=== PATIENT | female | born 1970 | race Caucasian/White ===

== ENCOUNTER 2018-12-12 15:08 | Emergency (ER) | payer MEDICARE, MEDICAID ==
[2018-12-12 15:23] VITALS: BP 146/95
[2018-12-12] MEDS ORDERED: Sodium Chloride 0.9% 10 ML Syringe FLUSH PRN (15:27)
[2018-12-12] MEDS ORDERED: cloNIDine 0.1 MG Tab PO ONE (15:27)
[2018-12-12] MEDS ORDERED: hydrOXYzine HCl 25 MG Tab PO ONE (15:28)
--- NOTE | 2018-12-12 15:34 | EDM.PDOC ---
ED HPI GENERAL MEDICAL PROBLEM - General Chief Complaint: Chest Pain Stated Complaint: CHEST PAINS Time Seen by Provider: 12/12/18 15:09 Source of Information: Reports: Patient History Limitations: Reports: No Limitations - History of Present Illness INITIAL COMMENTS - FREE TEXT/NARRATIVE: Patient comes into the emergency department with complaint of chest discomfort. She states of the chest discomfort started approximately 5 days ago. The chest pain has been consistent through the last 5 days and has not come and gone. She states has not gotten worse but has stayed the same but does admit it radiates to her shoulder blade. She can not think of anything that makes he pain better or worse. She denies any nausea/vomiting, SOB, or lower extremity swelling. Patient does admit to having a history of anxiety and has had a lot of stress in the recent weeks. She denies any recent injuries or illnesses. She is not on control, no recent long over the road or flights. Is actively quitting smoking Onset: Gradual Location: Reports: Chest Quality: Reports: Burning, Sharp, Throbbing Severity: Moderate Improves with: Reports: None Worsens with: Reports: None Context: Reports: Other Associated Symptoms: Reports: No Other Symptoms Mid-Sternal Chest Pain Score (Numeric/FACES): 4 - Related Data Allergies Allergy/AdvReac Type Severity Reaction Status Date / Time divalproex sodium Allergy Nausea and Verified 12/12/18 15:17 [From Depakote] Vomiting duloxetine HCl Allergy Rash Verified 12/12/18 15:17 [From Cymbalta] fluticasone propionate Allergy Headache Verified 12/12/18 15:17 [From Advair Diskus] salmeterol xinafoate Allergy Headache Verified 12/12/18 15:17 [From Advair Diskus] spironolactone Allergy Difficulty Verified 12/12/18 15:17 Breathing venlafaxine HCl Allergy Tremors Verified 12/12/18 15:17 [From Effexor] Home Meds: Home Meds levoFLOXacin [Levaquin] 750 mg PO Q48H #10 tab 07/19/15 [Rx] Past Medical History - Past Health History Medical/Surgical History: Denies Medical/Surgical History Gastrointestinal History: Reports: Other (See Below) Other Gastrointestinal History: history of colitis 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: Reports: Psychiatric History: Reports: Depression Social & Family History - Tobacco Use Smoking Status *Q: Current Every Day Smoker Years of Tobacco use: 10 Packs/Tins Daily: 0.1 - Recreational Drug Use Recreational Drug Use: No ED ROS GENERAL - Review of Systems Review Of Systems: See Below Constitutional: Reports: No Symptoms HEENT: Reports: No Symptoms Cardiovascular: Reports: Chest Pain, Palpitations GI/Abdominal: Reports: No Symptoms : Reports: No Symptoms Skin: Reports: No Symptoms Neurological: Reports: No Symptoms Psychiatric: Reports: No Symptoms Hematologic/Lymphatic: Reports: No Symptoms ED EXAM, GENERAL - Physical Exam Exam: See Below Exam Limited By: No Limitations General Appearance: Alert, WD/WN, No Apparent Distress Respiratory/Chest: No Respiratory Distress, Lungs Clear, Normal Breath Sounds, No Accessory Muscle Use, Chest Non-Tender Cardiovascular: Normal Peripheral Pulses, Regular Rate, Rhythm, No Edema GI/Abdominal: Normal Bowel Sounds, Soft, Non-Tender, No Distention, No Abnormal Bruit Back Exam: Normal Inspection, Full Range of Motion Extremities: Normal Inspection, Normal Range of Motion, Non-Tender, No Pedal Edema, Normal Capillary Refill Neurological: Alert, Oriented Psychiatric: Anxious Skin Exam: Warm, Dry, Intact, Normal Color Course - Vital Signs Last Recorded V/S: Last Vital Signs Temp 36.4 C 12/12/18 15:15 Pulse 58 L 12/12/18 15:15 Resp 18 12/12/18 15:15 BP 146/95 H 12/12/18 15:34 Pulse Ox 95 12/12/18 15:15 - Orders/Labs/Meds Orders: Active Orders 24 hr Category Date Time Status EKG Documentation Completion [RC] STAT Care 12/12/18 15:27 Active Chest 1V Frontal [CR] Stat Exams 12/12/18 15:28 Ordered Sodium Chloride 0.9% [Saline Flush] Med 12/12/18 15:27 Active 10 ml FLUSH ASDIRECTED PRN Peripheral IV Insertion Adult [OM.PC] Stat Oth 12/12/18 15:27 Ordered Medication Orders Sodium Chloride (Saline Flush) 10 ml FLUSH ASDIRECTED PRN PRN Reason: Keep Vein Open Labs: Laboratory Tests 12/12/18 12/12/18 12/12/18 Range/Units 15:30 15:30 15:37 WBC 8.2 (4.0-10.0) x10^3/uL RBC 3.93 L (4.00-5.50) x10^6/uL Hgb 12.3 D (12.0-16.0) g/dL Hct 37.5 (33.0-47.0) % MCV 95.4 H D (78.0-93.0) fL MCH 31.3 (26.0-32.0) pg MCHC 32.8 (32.0-36.0) g/dL RDW Coeff of Harjinder 13.7 (10.0-15.0) % Plt Count 228 (130-400) x10^3/uL Neut % (Auto) 65.6 (50.0-80.0) % Lymph % (Auto) 24.3 L (25.0-50.0) % Sanborn % (Auto) 6.7 (2.0-11.0) % Eos % (Auto) 2.9 (0.0-4.0) % Baso % (Auto) 0.5 (0.2-1.2) % Sodium 144 (136-145) mmol/L Potassium 3.7 (3.5-5.1) mmol/L Chloride 110 H (98-107) mmol/L Carbon Dioxide 22 (21-32) mmol/L Anion Gap 15.7 (10-20) mmol/L BUN 19 H (7-18) mg/dL Creatinine 0.9 (0.55-1.02) mg/dL Est Cr Clr Drug Dosing 71.56 mL/min Estimated GFR (MDRD) > 60 Glucose 106 (74-106) mg/dL Calcium 8.3 L (8.5-10.1) mg/dL Corrected Calcium 8.78 (8.5-10.1) mg/dL Total Bilirubin 0.3 (0.2-1.0) mg/dL AST 19 (15-37) U/L ALT 27 (14-59) U/L Alkaline Phosphatase 82 (46-116) U/L Creatine Kinase 45 (26-192) U/L POC Troponin I 0.00 (0.00-0.08) ng/mL Total Protein 6.3 L (6.4-8.2) g/dL Albumin 3.4 (3.4-5.0) g/dL Globulin 2.9 Albumin/Globulin Ratio 1.17 Meds: Medications Generic Name Dose Route Start Last Admin Trade Name Jam PRN Reason Stop Dose Admin Sodium Chloride 10 ml 12/12/18 15:27 Saline Flush FLUSH ASDIRECTED PRN Keep Vein Open Discontinued Medications Generic Name Dose Route Start Last Admin Trade Name Jam PRN Reason Stop Dose Admin Clonidine HCl 0.1 mg 12/12/18 15:27 12/12/18 15:34 Catapres PO 12/12/18 15:28 0.1 mg ONETIME ONE Administration Hydroxyzine HCl 25 mg 12/12/18 15:28 12/12/18 15:34 Atarax PO 12/12/18 15:29 25 mg ONETIME ONE Administration - Re-Assessments/Exams Free Text/Narrative Re-Assessment/Exam: 12/12/18 16:06 pt feels better after anxiety medication was provided. Did discuss all labs, xray, and EKG findings with the patient. She states she feels well and would like to be discharged. VSS. denies any other complaints or pain 12/12/18 16:07 Departure - Departure Time of Disposition: 16:20 Disposition: Home, Self-Care 01 Condition: Good Clinical Impression: Anxiety Instructions: Panic Attack, [id number], Generalized Anxiety Disorder, Adult Forms: ED Department Discharge Additional Instructions: 1. rest 2. increase water intake 3. Follow up with PCP or psychiatric provider next week to discuss your director long term care anxiety medication management and therapy options 4. Activity and diet as tolerated 5. Can take Tylenol or ibuprofen for pain and discomfort 6. Call with any questions or concerns 7. Labs, EKG, and x-ray completed today did not show any acute findings. 8. You were given hydroxyzine HCL 50mg tablet and clonidine 0.1mg tablet in the ER to help relieve the anxiety symptoms - Problem List Review Problem List Initiated/Reviewed/Updated: Yes - My Orders Last 24 Hours: My Active Orders 12/12/18 15:27 EKG Documentation Completion [RC] STAT Sodium Chloride 0.9% [Saline Flush] 10 ml FLUSH ASDIRECTED PRN Peripheral IV Insertion Adult [OM.PC] Stat 12/12/18 15:28 Chest 1V Frontal [CR] Stat - Assessment/Plan Last 24 Hours: My Active Orders 12/12/18 15:27 EKG Documentation Completion [RC] STAT Sodium Chloride 0.9% [Saline Flush] 10 ml FLUSH ASDIRECTED PRN Peripheral IV Insertion Adult [OM.PC] Stat 12/12/18 15:28 Chest 1V Frontal [CR] Stat Assessment:: 1. chest pain 2. anxiety Plan: 1. Labs completed in the ER. Results reviewed with the patient. No acute findings noted 2. IV started in the ER 3. Hydroxyzine and clonidine given in the ER to help with anxiety 4. EKG completed. Results reviewed with patient. No acute findings noted. Patient's in the sinus rhythm 5. Chest x-ray completed. Results reviewed with patient. No acute findings noted 6. Education regarding anxiety, activity, follow-up, [id number] medications provided the patient 7. All questions and concerns answered prior to discharge
[2018-12-12 15:59] LABS: CHLORIDE,CL 110 mmol/L (98-107); SODIUM,NA 144 mmol/L (136-145)
[2018-12-12 16:00] LABS: ANION GAP 15.7 mmol/L (10-20)
--- NOTE | 2018-12-12 16:15 | CR ---
[id number] RAD/RAD Chest PA or AP 1V EXAM: SINGLE VIEW CHEST. INDICATION: CHEST PAIN COMPARISON: NO PREVIOUS SIMILAR EXAM IS AVAILABLE FINDINGS: The lungs are clear. The cardiomediastinal contour is unremarkable. IMPRESSION: NO ACUTE PROCESS. Isai Mares MD 12/12/18 1973 Thank you for allowing us to participate in the care of your patient.
== END 2018-12-12 16:18 | disposition home or self-care (01) ==
LOC: VM.ED 15:08
DX: R07.89 Other chest pain (principal); F41.9 Anxiety disorder, unspecified; F17.210 Nicotine dependence, cigarettes, uncomplicated; Z88.8 Allergy status to other drugs, medicaments and biological substances
CPT/HCPCS: 71045; 80053; 82550; 84484; 85025; 93005; 99284; A9270

== ENCOUNTER 2021-07-10 15:01 | Emergency (ER) | payer OTHER, MEDICARE ==
[2021-07-10] MEDS ORDERED: Acetaminophen/HYDROcodone 325-10 MG Tab PO ONE (16:16)
[2021-07-10] MEDS ORDERED: Ondansetron 4 MG Tab.DIS PO ONE (16:16)
[2021-07-10 16:38] VITALS: BP 158/101; PULSE 52
[2021-07-10] MEDS ORDERED: Take Home: Acetaminophen/HYDROcodone 325-5 MG, 5 Tab Pack PO ONE (17:07)
== END 2021-07-10 17:25 | disposition home or self-care (01) ==
LOC: VM.ED 15:01
DX: S30.0XXA Contusion of lower back and pelvis, initial encounter (principal); M25.532 Pain in left wrist; Z88.8 Allergy status to other drugs, medicaments and biological substances; Z79.899 Other long term (current) drug therapy; W17.89XA Other fall from one level to another, initial encounter
CPT/HCPCS: 72100; 73110-LT; 99283; 99283-25; A9270-GY

== ENCOUNTER 2021-11-27 12:31 | Emergency (ER) | payer MEDICARE, OTHER ==
[2021-11-27 13:04] VITALS: BP 117/77; PULSE 57
== END 2021-11-27 14:25 | disposition home or self-care (01) ==
LOC: SUPCPDRO 12:31 → VM.ED 12:31
DX: S93.402A Sprain of unspecified ligament of left ankle, initial encounter (principal); F17.210 Nicotine dependence, cigarettes, uncomplicated; F32.A Depression, unspecified; Z79.899 Other long term (current) drug therapy; Z88.8 Allergy status to other drugs, medicaments and biological substances; Z91.030 Bee allergy status; X50.1XXA Overexertion from prolonged static or awkward postures, initial encounter; Y99.0 Civilian activity done for income or pay
CPT/HCPCS: 29515; 73610-LT; 99283; 99283-25

== ENCOUNTER 2023-01-22 07:06 | Emergency (ER) | payer OTHER ==
[2023-01-22] MEDS: Acetaminophen/HYDROcodone 325-10 MG Tab PO ONE (08:06)
[2023-01-22 08:38] VITALS: BP 137/89; PULSE 62
== END 2023-01-22 09:40 | disposition home or self-care (01) ==
LOC: VM.ED 07:06
DX: S92.411A Displaced fracture of proximal phalanx of right great toe, initial encounter for closed fracture (principal); Z72.0 Tobacco use; Z91.030 Bee allergy status; Z88.8 Allergy status to other drugs, medicaments and biological substances; Z79.899 Other long term (current) drug therapy; W20.8XXA Other cause of strike by thrown, projected or falling object, initial encounter; Y92.89 Other specified places as the place of occurrence of the external cause; Y99.0 Civilian activity done for income or pay
CPT/HCPCS: 73630-RT; 99283; A9270-GY

== ENCOUNTER 2023-08-31 15:19 | Emergency (ER) | payer OTHER ==
[2023-08-31] MEDS ORDERED: Sodium Chloride 0.9% 10 ML Syringe FLUSH PRN (15:24)
[2023-08-31] MEDS ORDERED: Lactated Ringers 1,000 ML IV ONE (15:27)
[2023-08-31 15:52] LABS: BASOPHILS PERCENT AUTO 0.1 % (0.2-1.2); HEMATOCRIT 44.5 % (33.0-47.0); HEMOGLOBIN 14.4 g/dL (12.0-16.0); IMMATURE GRAN ABSOLUTE AUTO 0.03 x10^3/uL (0.00-0.07); LYMPHOCYTES ABSOLUTE AUTO 1.2 x10^3/uL (1.0-4.8); LYMPHOCYTES PERCENT AUTO 8.8 % (25.0-50.0); MEAN CORPUSCULAR HEMOGLOBIN 30.4 pg (26.0-32.0); MEAN CORPUSCULAR HGB CONC 32.4 g/dL (32.0-36.0); MEAN CORPUSCULAR VOLUME 93.9 fL (78.0-93.0); MONOCYTES ABSOLUTE AUTO 1.2 x10^3/uL (0.0-0.8); MONOCYTES PERCENT AUTO 8.2 % (2.0-11.0); NEUTROPHILS ABSOLUTE AUTO 11.7 x10^3/uL (1.8-7.7); NEUTROPHILS PERCENT AUTO 82.7 % (50.0-80.0); PLATELET COUNT,PLT 231 x10^3/uL (130-400); RED BLOOD CELL COUNT 4.74 x10^6/uL (4.00-5.50); WHITE BLOOD CELL COUNT,WBC 14.1 x10^3/uL (4.0-10.0)
[2023-08-31 16:07] LABS: HCO3 VENOUS,POC 25 mmol/L (22-29); O2 SATURATION VENOUS,POC 71 %; PCO2 VENOUS,POC 39 mmHg (41-51); PH VENOUS,POC 7.41 pH (7.32-7.43); PO2 VENOUS,POC 37 mmHg
[2023-08-31 16:08] LABS: INR 0.9 (0.9-1.1); PROTHROMBIN TIME 9.9 SEC (9.5-12.2); PTT,PARTIAL THROMBOPLSTIN TIME 27.9 SEC (23.6-33.6)
[2023-08-31 16:15] LABS: LACTIC ACID 2.1 mmol/L (0.4-2.0)
[2023-08-31 16:23] LABS: A/G RATIO 0.95; ALANINE AMINOTRANSFERASE,ALT 56 U/L (14-59); ALBUMIN 4.1 g/dL (3.4-5.0); ALKALINE PHOSPHATASE 84 U/L (46-116); ASPARTATE AMNIOTRANSFERASE,AST 71 U/L (15-37); BILIRUBIN TOTAL 0.9 mg/dL (0.2-1.0); BLOOD UREA NITROGEN,BUN 47 mg/dL (7-18); CARBON DIOXIDE,CO2 25 mmol/L (21-32); CHLORIDE,CL 108 mmol/L (98-107); GLUCOSE RANDOM 131 mg/dL (70-99); MAGNESIUM 1.8 mg/dL (1.8-2.4); POTASSIUM,K 3.3 mmol/L (3.5-5.1); PROTEIN TOTAL,TP 8.4 g/dL (6.4-8.2); SODIUM,NA 149 mmol/L (136-145); TSH ULTRASENSITIVE 0.659 uIU/mL (0.358-3.74)
[2023-08-31 16:24] LABS: ANION GAP 19.3 mmol/L (5-15)
[2023-08-31 16:25] LABS: ACETAMINOPHEN 0 ug/ml (10-30); ESTIMATED GFR 68 mL/min (>=60); ETHANOL BLOOD MEDICAL < 3 mg/dL (0-3)
[2023-08-31 16:39] LABS: AMPHETAMINES SCREEN, URINE NEGATIVE (NEGATIVE); BARBITURATE SCREEN,URINE NEGATIVE (NEGATIVE); BENZODIAZEPINES SCREEN,URINE NEGATIVE (NEGATIVE); BUPRENORPHINE SCREEN,URINE NEGATIVE (NEGATIVE); COCAINE METABOLITES,URINE NEGATIVE (NEGATIVE); METHADONE SCREEN, URINE NEGATIVE (NEGATIVE); METHAMPHETAMINE SCREEN, URINE NEGATIVE (NEGATIVE); OXYCODONE SCREEN,URINE NEGATIVE (NEGATIVE); PCP SCREEN,URINE NEGATIVE (NEGATIVE); THC SCREEN,URINE 50 NG/ML NEGATIVE (NEGATIVE)
[2023-08-31 16:40] LABS: APPEARANCE,URINE CLOUDY (CLEAR); BILIRUBIN,URINE MODERATE (NEGATIVE); COLOR,URINE BROWN (YELLOW); GLUCOSE,URINE NEGATIVE (NEGATIVE); KETONES,URINE 15 mg/dL (NEGATIVE); LEUKOCYTE ESTERASE,URINE NEGATIVE (NEGATIVE); NITRITE,URINE NEGATIVE (NEGATIVE); OCCULT BLOOD,URINE LARGE (NEGATIVE); PROTEIN,URINE >=300 mg/dL (NEGATIVE)
[2023-08-31 16:41] LABS: CORONAVIRUS COVID-19 NAA NEGATIVE (NEGATIVE); INFLUENZA A NAA NEGATIVE (NEGATIVE); INFLUENZA B NAA NEGATIVE (NEGATIVE); RESPIRATORY SYNCYTIAL VIR NAA NEGATIVE (NEGATIVE)
[2023-08-31 16:46] LABS: BACTERIA,URINE OCCASIONAL /HPF (NOT SEEN); HYALINE CASTS,URINE MODERATE; MUCUS,URINE MANY /LPF (NOT SEEN); RBC,URINE 75-100 /HPF (NOT SEEN); SQUAMOUS EPITHELIAL CELLS,UR MODERATE /HPF (NOT SEEN); WBC,URINE 0-5 /HPF (NOT SEEN)
[2023-08-31] MEDS: levETIRAcetam in NaCl (iso-os) 1,000 MG in Premix Bag 1 BAG IV ONE (17:13)
[2023-08-31] MEDS: Sodium Chloride 3% 500 ML IV SCH (17:16)
[2023-08-31] MEDS: Tranexamic Acid 1,000 MG/10 ML Vial IV ONE (17:24)
== END 2023-08-31 17:40 | disposition short-term general hospital (02) ==
LOC: VM.ED 15:19
DX: S09.90XA Unspecified injury of head, initial encounter (principal); I60.9 Nontraumatic subarachnoid hemorrhage, unspecified; I62.00 Nontraumatic subdural hemorrhage, unspecified; M62.82 Rhabdomyolysis; I10 Essential (primary) hypertension; E78.00 Pure hypercholesterolemia, unspecified; E66.9 Obesity, unspecified; Z91.030 Bee allergy status; Z88.8 Allergy status to other drugs, medicaments and biological substances; Z79.899 Other long term (current) drug therapy; X58.XXXA Exposure to other specified factors, initial encounter
CPT/HCPCS: 0241U; 36415; 51702; 70450; 71045; 72125; 80053; 80143; 80179; 80305-QW; 80307; 81001; 81025; 82140; 82550; 82803; 83605; 83735; 84443; 84484; 85025; 85610; 85730; 86140; 87040; 93005; 93010; 96361; 96365; 96375; 99284; 99285-25; J1953; J3490; J7040

== ENCOUNTER 2023-12-28 14:30 | Emergency (ER) | payer OTHER ==
[2023-12-28 17:07] VITALS: BP 128/82; PULSE 62
== END 2023-12-28 15:40 | disposition home or self-care (01) ==
LOC: VM.ED 14:30
DX: S20.312A Abrasion of left front wall of thorax, initial encounter (principal); I10 Essential (primary) hypertension; E03.9 Hypothyroidism, unspecified; E66.9 Obesity, unspecified; Z79.890 Hormone replacement therapy; Z79.899 Other long term (current) drug therapy; Z91.030 Bee allergy status; Z91.048 Other nonmedicinal substance allergy status; Z88.8 Allergy status to other drugs, medicaments and biological substances; Z68.30 Body mass index [BMI] 30.0-30.9, adult; V89.2XXA Person injured in unspecified motor-vehicle accident, traffic, initial encounter; Y92.511 Restaurant or cafe as the place of occurrence of the external cause
CPT/HCPCS: 99283

== ENCOUNTER 2024-04-29 07:18 | Observation (INO) | payer OTHER ==
[2024-04-29 07:53] LABS: BASOPHILS PERCENT AUTO 0.6 % (0.2-1.2); EOSINOPHILS ABSOLUTE AUTO 0.3 x10^3/uL (0.0-0.5); HEMATOCRIT 41.1 % (33.0-47.0); HEMOGLOBIN 13.6 g/dL (12.0-16.0); IMMATURE GRAN ABSOLUTE AUTO 0.01 x10^3/uL (0.00-0.07); LYMPHOCYTES ABSOLUTE AUTO 1.8 x10^3/uL (1.0-4.8); LYMPHOCYTES PERCENT AUTO 27.2 % (25.0-50.0); MEAN CORPUSCULAR HEMOGLOBIN 30.8 pg (26.0-32.0); MEAN CORPUSCULAR HGB CONC 33.1 g/dL (32.0-36.0); MONOCYTES ABSOLUTE AUTO 0.5 x10^3/uL (0.0-0.8); MONOCYTES PERCENT AUTO 8.1 % (2.0-11.0); NEUTROPHILS ABSOLUTE AUTO 3.9 x10^3/uL (1.8-7.7); NEUTROPHILS PERCENT AUTO 59.9 % (50.0-80.0); PLATELET COUNT,PLT 187 x10^3/uL (130-400); RED BLOOD CELL COUNT 4.42 x10^6/uL (4.00-5.50); WHITE BLOOD CELL COUNT,WBC 6.4 x10^3/uL (4.0-10.0)
[2024-04-29 08:04] LABS: BLOOD UREA NITROGEN,BUN 15 mg/dL (7-18); CALCIUM 8.9 mg/dL (8.5-10.1); CARBON DIOXIDE,CO2 29 mmol/L (21-32); CHLORIDE,CL 106 mmol/L (98-107); GLUCOSE RANDOM 90 mg/dL (70-99); POTASSIUM,K 3.3 mmol/L (3.5-5.1); SODIUM,NA 143 mmol/L (136-145)
[2024-04-29 08:07] LABS: ANION GAP 11.3 mmol/L (5-15); ESTIMATED GFR 67 mL/min (>=60)
[2024-04-29] MEDS: Ondansetron 8 MG in Sodium Chloride 0.9% 100 ML IV ONE (08:23)
[2024-04-29 09:22] LABS: BASE EXCESS ARTERIAL,POC -2 mmol/L ((-2)-3); HCO3 ARTERIAL,POC 23.3 mmol/L (21-28); O2 SATURATION ARTERIAL,POC 91.7 % (94-98); PCO2 ARTERIAL,POC 42 mmHg (35-48); PH ARTERIAL,POC 7.36 pH (7.35-7.45); PO2 ARTERIAL,POC 66 mmHg (83-108); TCO2 ARTERIAL,POC 23.3 mmol/L (22-29)
[2024-04-29] MEDS: levETIRAcetam 500 MG/5 ML SDV IVPUSH ONE (10:03)
[2024-04-29 10:50] LABS: APPEARANCE,URINE CLEAR (CLEAR); BILIRUBIN,URINE NEGATIVE (NEGATIVE); COLOR,URINE YELLOW (YELLOW); GLUCOSE,URINE NEGATIVE (NEGATIVE); KETONES,URINE NEGATIVE (NEGATIVE); LEUKOCYTE ESTERASE,URINE NEGATIVE (NEGATIVE); NITRITE,URINE NEGATIVE (NEGATIVE); OCCULT BLOOD,URINE SMALL (NEGATIVE); PH,URINE 6.5 (5.0-8.0); PROTEIN,URINE NEGATIVE (NEGATIVE); UROBILINOGEN,URINE 0.2 EU/dL (0.2)
[2024-04-29 11:18] LABS: BACTERIA,URINE RARE /HPF (NOT SEEN); MUCUS,URINE NOT SEEN /LPF (NOT SEEN); SQUAMOUS EPITHELIAL CELLS,UR RARE /HPF (NOT SEEN); WBC,URINE 0-5 /HPF (NOT SEEN)
[2024-04-29] MEDS: Acetaminophen 500 MG Tab PO ONE (12:02)
[2024-04-29] MEDS ORDERED: RIZATRIPTAN 10 MG PO PRN (14:33)
[2024-04-29] MEDS ORDERED: ELETRIPTAN 40 MG PO PRN (14:33)
[2024-04-29] MEDS: Sodium Chloride 0.9% 1,000 ML IV SCH (19:33)
[2024-04-29] MEDS: Dexamethasone 4 MG/ML SDV IVPUSH SCH (19:34)
[2024-04-29] MEDS ORDERED: PREGABALIN 225 MG PO SCH (21:00)
[2024-04-29] MEDS: Topiramate 50 MG Tab PO SCH (21:10)
[2024-04-29] MEDS: QUEtiapine 25 MG Tab PO SCH (21:11)
[2024-04-29] MEDS: lamoTRIgine 100 MG Tab PO SCH (22:05)
[2024-04-29] MEDS: Ondansetron 4 MG/2 ML SDV ONE (22:10)
[2024-04-30] MEDS: Dexamethasone 4 MG/ML SDV IVPUSH SCH (03:37)
[2024-04-30] MEDS: Levothyroxine 75 MCG Tab PO SCH (06:06)
[2024-04-30 06:57] LABS: BASOPHILS PERCENT AUTO 0.5 % (0.2-1.2); EOSINOPHILS PERCENT AUTO 0.2 % (0.0-4.0); HEMATOCRIT 40.9 % (33.0-47.0); HEMOGLOBIN 13.6 g/dL (12.0-16.0); IMMATURE GRAN ABSOLUTE AUTO 0.01 x10^3/uL (0.00-0.07); LYMPHOCYTES ABSOLUTE AUTO 0.8 x10^3/uL (1.0-4.8); LYMPHOCYTES PERCENT AUTO 13.3 % (25.0-50.0); MEAN CORPUSCULAR HGB CONC 33.3 g/dL (32.0-36.0); MEAN CORPUSCULAR VOLUME 93.2 fL (78.0-93.0); MONOCYTES ABSOLUTE AUTO 0.1 x10^3/uL (0.0-0.8); MONOCYTES PERCENT AUTO 1.9 % (2.0-11.0); NEUTROPHILS ABSOLUTE AUTO 4.9 x10^3/uL (1.8-7.7); NEUTROPHILS PERCENT AUTO 83.9 % (50.0-80.0); PLATELET COUNT,PLT 200 x10^3/uL (130-400); RED BLOOD CELL COUNT 4.39 x10^6/uL (4.00-5.50); WHITE BLOOD CELL COUNT,WBC 5.8 x10^3/uL (4.0-10.0)
[2024-04-30 07:09] LABS: CALCIUM 8.7 mg/dL (8.5-10.1); CREATININE 0.9 mg/dL (0.55-1.02); EST CRCL DRUG DOSING (CG) 67.67 mL/min
[2024-04-30] MEDS: Acetaminophen 500 MG Tab PO PRN (08:47)
[2024-04-30] MEDS: levETIRAcetam 500 MG Tab PO SCH (08:48)
[2024-04-30] MEDS: AMANTADINE 100 MG PO SCH (08:48)
[2024-04-30] MEDS: Sertraline 100 MG Tab PO SCH (08:48)
[2024-04-30] MEDS: Nicotine 21 MG/24 Hr Patch TOP SCH (08:49)
[2024-04-30 11:40] VITALS: PULSE 56
[2024-04-30] MEDS: amLODIPine 5 MG Tab PO SCH (11:47)
[2024-04-30 12:01] VITALS: BP 151/92
[2024-05-03 05:08] LABS: LAMOTROGINE 1.9 ug/mL (3.0-15.0)
== END 2024-04-30 14:00 | disposition home or self-care (01) ==
LOC: VM.ED 07:18 → VM.MS 13:50
PROVIDERS: ADMIT Physician Assistant Medical; ATTEND Physician Assistant
DX: R56.9 Unspecified convulsions (principal); G40.909 Epilepsy, unspecified, not intractable, without status epilepticus; S06.5X9A Traumatic subdural hemorrhage with loss of consciousness of unspecified duration, initial encounter; I10 Essential (primary) hypertension; E78.00 Pure hypercholesterolemia, unspecified; R00.1 Bradycardia, unspecified; E03.9 Hypothyroidism, unspecified; E66.9 Obesity, unspecified; Z79.890 Hormone replacement therapy; Z79.899 Other long term (current) drug therapy; Z98.890 Other specified postprocedural states; Z20.822 Contact with and (suspected) exposure to COVID-19; Z91.030 Bee allergy status; Z88.8 Allergy status to other drugs, medicaments and biological substances; Z68.30 Body mass index [BMI] 30.0-30.9, adult
CPT/HCPCS: 36415; 36600; 70450; 71045; 72125; 80048; 80175; 81001; 82803; 85025; 86140; 87428-QW; 93005; 93010; 94760; 96374; 96375; 96376; 99223; 99285-25; A9270-GY; G0378; J1100; J1953; J2405; J3490; J7030